=== PATIENT | male | born 1960 | race Caucasian/White ===

== ENCOUNTER 2019-03-12 08:30 | Outpatient (RCR) | payer OTHER, SELFPAY | END 2019-03-12 23:59 | disposition home or self-care (01) | LOC: ANHAUDIO 08:30 | PROVIDERS: PCP Internal Medicine; Visit Provider Internal Medicine | DX: Z46.1 Encounter for fitting and adjustment of hearing aid (principal) | CPT/HCPCS: 99199 ==

== ENCOUNTER 2019-04-23 08:13 | Outpatient (CLI) | payer OTHER, SELFPAY | END 2019-04-23 08:14 | disposition home or self-care (01) | LOC: ANHBWCAUD 08:14 | PROVIDERS: PCP Internal Medicine; Visit Provider Internal Medicine | DX: H90.3 Sensorineural hearing loss, bilateral (principal) | CPT/HCPCS: 92557; 92567 ==

== ENCOUNTER 2019-05-08 08:03 | Outpatient (RCR) | payer OTHER, SELFPAY | END 2019-08-06 23:59 | disposition home or self-care (01) | LOC: ANHBWCAUD 08:03 | PROVIDERS: PCP Internal Medicine; Visit Provider Internal Medicine | DX: Z46.1 Encounter for fitting and adjustment of hearing aid (principal) | CPT/HCPCS: V5264 ==

== ENCOUNTER 2019-11-19 13:38 | Outpatient (RCR) | payer OTHER, SELFPAY | END 2019-11-19 23:59 | disposition home or self-care (01) | LOC: ANHAUDIO 13:38 | PROVIDERS: PCP Internal Medicine; Visit Provider Internal Medicine | DX: Z46.1 Encounter for fitting and adjustment of hearing aid (principal) | CPT/HCPCS: 99199 ==

== ENCOUNTER 2021-03-03 13:41 | Outpatient (CLI) | payer OTHER, SELFPAY | END 2021-03-03 13:42 | disposition home or self-care (01) | LOC: ANHBWCAUD 13:41 | PROVIDERS: PCP Internal Medicine; Visit Provider Internal Medicine | DX: H90.3 Sensorineural hearing loss, bilateral (principal) | CPT/HCPCS: 92557; 92567 ==

== ENCOUNTER 2021-04-04 08:30 | Outpatient (RCR) | payer OTHER, SELFPAY | END 2021-06-22 23:59 | disposition home or self-care (01) | LOC: ANHBWCAUD 08:30 | PROVIDERS: PCP Internal Medicine; Visit Provider Internal Medicine | DX: Z46.1 Encounter for fitting and adjustment of hearing aid (principal) | CPT/HCPCS: 99199; V5160; V5260 ==

== ENCOUNTER 2024-05-26 13:48 | Outpatient (RCR) | payer OTHER, SELFPAY | END 2024-08-24 23:59 | disposition home or self-care (01) | LOC: ANHBWCAUD 13:48 | PROVIDERS: PCP Internal Medicine; Visit Provider Internal Medicine | DX: Z46.1 Encounter for fitting and adjustment of hearing aid (principal) | CPT/HCPCS: 92592 ==